=== PATIENT | male | born 1980 | race Hispanic/Latino ===

== ENCOUNTER 2022-01-15 20:35 | Emergency (ER) | payer OTHER ==
[~2022-01-15] VITALS: Ht 167.6 cm; Wt 81.6 kg
[~2022-01-15 20:35] MED LIST: FERS325 PO; LANS1COM10 PO
[2022-01-15] MEDS ORDERED: ACETAMINOPHEN 500 MG TABLET PO ONE (22:00)
[2022-01-15] MEDS ORDERED: BACI30OI6 TP (22:56)
[2022-01-15] MEDS ORDERED: BACITRACIN 28.4 GM OINT TP ONE (23:00)
[2022-01-15] MEDS ORDERED: ACETAMINOPHEN 500 MG TABLET ONE (23:14)
[2022-01-15] MEDS ORDERED: TETANUS/DIPHTHERIA TOXOID [ADULT] 0.5 ML VIAL IM ONE (23:15)
[2022-01-15 23:37] VITALS: BP 132/74
== END 2022-01-15 23:40 | disposition home or self-care (01) ==
LOC: EDH 20:35
DX: S01.01XA Laceration without foreign body of scalp, initial encounter (principal); X58.XXXA Exposure to other specified factors, initial encounter; Y93.89 Activity, other specified; Y92.89 Other specified places as the place of occurrence of the external cause; Y99.8 Other external cause status
CPT/HCPCS: 12002; 70450; 90471; 90714

== ENCOUNTER 2022-01-20 23:05 | Emergency (ER) | payer OTHER ==
[~2022-01-20] VITALS: Ht 167.6 cm; Wt 86.6 kg
[~2022-01-20 23:05] MED LIST changes: +BACI30OI6 TP
[2022-01-20 23:06] VITALS: BP 133/81
== END 2022-01-20 23:24 | disposition home or self-care (01) ==
LOC: EDH 23:05
DX: S01.01XD Laceration without foreign body of scalp, subsequent encounter (principal); X58.XXXD Exposure to other specified factors, subsequent encounter
CPT/HCPCS: 99281